=== PATIENT | female | born 1960 | race Caucasian/White ===

== ENCOUNTER → 2024-03-11 13:28 | Outpatient (REF) | payer MEDICARE, SELFPAY | LOC: WDC 13:28 | PROVIDERS: ATTENDING PHYSICIAN Family Medicine; FAMILY PHYSICIAN Family Medicine | DX: R92.2 Inconclusive mammogram (principal) | CPT/HCPCS: 76641 ==

== ENCOUNTER → 2024-04-29 16:57 | Outpatient (REF) | payer MEDICARE, SELFPAY | LOC: RAD 16:57 | PROVIDERS: ATTENDING PHYSICIAN Internal Medicine Gastroenterology; FAMILY PHYSICIAN Family Medicine | DX: K74.60 Unspecified cirrhosis of liver (principal) | CPT/HCPCS: 76700 ==

== ENCOUNTER 2024-09-17 15:40 | Emergency (ER) | payer MEDICARE, SELFPAY ==
[2024-09-17 15:42] VITALS: BP 159/82
--- NOTE | 2024-09-17 15:54 | ED.GENMED ---
History of Present Illness
General
Chief Complaint: Musculo-Skeletal Complaint
Source: patient
Exam Limitations: none
Time Seen by Provider: 09/17/24 15:49
History of Present Illness
History of Present Illness:
See MDM
Past History
Past History
ED Past Medical History: Arrthythmia, CVA and Valvular disease
ED Past Surgical History: Cardiac, and Gynecological
Social History
Tobacco: Non-smoker
Alcohol: None
Drug: None
Living: with family
Family History
Family History: Diabetes
Phy Exam
Physical Exam
Physical Exam:
See MDM
Course
Orders/Labs/Results
Orders:
Orders
09/17/24 15:43
Hand, Right 3 View [CR Hand - Right Min 3 Views] Urgent
Comment:
Reason For Exam: hand injury now with non painful lump top of hand
Vital Signs
Initial and Last Documented VS:
Initial Vital Signs
Temp Pulse Resp BP Pulse Ox
98.1 F 82 16 159/82 98
09/17/24 15:42 09/17/24 15:42 09/17/24 15:42 09/17/24 15:42 09/17/24 15:42
Last Documented Vital Signs
Temp Pulse Resp BP Pulse Ox
98.1 F 82 16 159/82 98
09/17/24 15:42 09/17/24 15:42 09/17/24 15:42 09/17/24 15:42 09/17/24 15:42
MDM/Problems Addressed
Differential Diagnosis Includes:
HPI and MDM Narrative:
64-year-old female presenting with right hand injury. She states she was wrestling a phone out of her hand with her daughter. She states soon afterwards, she noted that there was black and blue of her right hand and she noted a bubble. Patient
denies numbness or tingling or pain with hand movement
On exam, her hand is neurovascularly intact. The x-ray shows no evidence of fracture. The 'bubble' is very mobile and has the appearance of a ganglionic cyst. Discussed expectant management and follow-up with hand. It is non pulsatile
Physical exam
General: Well appearing and non-toxic
HEENT: protecting airway
Neck: appears supple
CV: No evidence of cyanosis
Resp: No accessory muscle use
Abd: Non-distended
Extremities: Bruising to dorsum of right hand without bony tenderness. All fingers neurovascular intact. No evidence of ligamentous injury. Palpable 1 cm cyst to dorsum of right hand below index finger
Neuro: alert
Psych: Normal affect
Skin: Intact
Problems Addressed including Acute and Chronic Conditions affecting care:
1. Ganglion cyst
Acuity: acute
Prognosis: stable
Details: Discussed follow-up with hand.
Differential Diagnosis (but not limited to): Ganglion cyst, fracture, sprain
Testing considered: INR level
Drug therapy (if applicable): OTC meds, please see d/c instruction regarding Rx drugs
Amount and/or Complexity of Data Reviewed
Clinical info obtained from: Patient
External data reviewed: N/A
Labs I independently reviewed (but not limited to): N/A
Radiology: X-ray independently reviewed: No fracture noted on hand x-ray
Pulse Ox: not hypoxic
EKG independently reviewed: N/A
Chief Ii Dispatcher: N/A
Critical Care: N/A
Risk of Complication:
Social Determinants of health: Good social support
Discussed with other providers: N/A
Escalation of Care includes Admit/Obs: After being observed in the Emergency Department, pt stable for discharge.
Occasional wrong word or 'sound a like' substitutions may have occurred due to the inherent limitations of voice recognition software. Read the chart carefully and recognize, using context, where substitutions have occurred.
*Critical Care Note
Total Time (30-74mins, 75-104mins- exclusive of procedures): Not Applicable
ED Attending Note
-
Portions of this chart may have been created with voice recognition software.� Occasional wrong word or��sound alike� substitutions may have occurred due to the inherent limitations of voice recognition software.
Discharge Plan
Departure
Patient Disposition: Home (Routine Discharge)
Date of Disposition: 09/17/24
Time of Disposition: 16:09
Patient with high blood pressure during this ER visit?: Yes
Discharge Problem:
Ganglion cyst
Instructions: Ganglion Cyst (DC), BLOOD PRESSURE
Prescriptions:
No Action
donepezil 10 MG tablet
10 mg PO DAILY
digoxin 0.125 MG tablet
0.125 mg PO DAILY
diltiazem HCl 60 MG tablet
120 mg PO DAILY
warfarin 2.5 mg tablet
5 mg PO THSA
warfarin 2.5 mg tablet
7.5 mg PO SUMOTUWEFR
furosemide 20 mg Tablet
20 mg PO DAILY Qty: 30 0RF
potassium chloride 10 mEq tablet,ER particles/crystals
10 meq PO Q48H Qty: 30 0RF
cephalexin 500 mg capsule
500 mg PO QID 9 Days Qty: 36 0RF
prednisone 10 mg Tablet
See Rx Instructions .ROUTE .COMPLEX Qty: 30 0RF
Rx Instructions:
Take By Mouth:
40 mg daily x3 days, 30 mg daily x3 days,
20 mg daily x3 days, 10 mg daily x3 days.
Referrals:
Aung Childers MD [Active] -
Activity Restrictions/Additional Instructions:
Please return for any worsening symptoms.
You may return at any time if you have further concerns.
Please follow up with your doctor at the first available appointment, preferably this week.
Please follow-up with a hand surgeon.
Thank you for choosing [facility].
Interventions
Interventions:
*Risk Screen - Suicide Last Done: 09/17/24 15:57
*General Assessment Last Done: 09/17/24 15:57
*Neglect/Abuse Screening Last Done: 09/17/24 15:57
ED- Fall Risk Assessment Last Done: 09/17/24 15:57
*ED COVID-19 Vaccine History Last Done: 09/17/24 15:57
ED-Musculoskeletal Assessment Last Done: 09/17/24 15:57
Discharge Date and Time
Print Language: ARMENIAN
--- NOTE | 2024-09-17 16:19 | EDRN ---
Reviewed discharge instructions with patient. Verbalized understanding. Ambulated with steady gait to the lobby.
[2024-09-17 16:20] VITALS: BP 134/70
== END 2024-09-17 16:23 | disposition home or self-care (01) ==
LOC: EMR 15:40
PROVIDERS: EMERGENCY PHYSICIAN Student in an Organized Health Care Education/Training Program; FAMILY PHYSICIAN Family Medicine
DX: M67.40 Ganglion, unspecified site (principal); I38 Endocarditis, valve unspecified; Z83.3 Family history of diabetes mellitus; Z86.73 Personal history of transient ischemic attack (TIA), and cerebral infarction without residual deficits
CPT/HCPCS: 99283; 73130

== ENCOUNTER 2024-10-16 20:02 | Emergency (ER) | payer MEDICARE, SELFPAY ==
[2024-10-16 20:04] VITALS: BP 117/52; BMI 24.6
[2024-10-16 20:07] VITALS: BP 117/52
[2024-10-16 20:22] LABS: % Basophils 0.5 % (0-2); % Eosinophils 1.2 % (0-6); % Immature Granulocytes 0.7 % (0-0.5); % Lymphocytes 11.5 % (20.5-51.1); % Monocytes 9.1 % (1.7-9.3); Absolute Eosinophils 0.1 10^3/uL (0-0.7); Absolute Lymphocytes 0.5 10^3/uL (1.2-3.4); Absolute Monocytes 0.4 10^3/uL (0.1-0.6); Absolute Neutrophils 3.2 10^3/uL (1.4-6.5); Hematocrit 37.7 % (37.0-47.0); Mean Corp Hgb Conc. 31.8 g/dL (33.0-37.0); Mean Corpuscular Hgb 27.6 pg (27.0-31.0); Mean Corpuscular Volume 86.7 fL (81.0-99.0); Mean Platelet Volume 11.6 fL (7.4-10.4); Nucleated Red Blood Cells % 0 %; Platelet Count 156 10^3/uL (130-400); Red Blood Cell Count 4.35 10^6/uL (4.20-5.40); White Blood Cell Count 4.2 10^3/uL (4.8-10.8)
--- NOTE | 2024-10-16 20:31 | ED.GENMED ---
History of Present Illness
General
Chief Complaint: Fainting/Passed Out
Time Seen by Provider: 10/16/24 20:04
History of Present Illness
History of Present Illness:
TIME OF INITIAL ENCOUNTER: 8:20 PM
HPI: The patient had a sensation that she needed to go to the bathroom. She felt nauseated for the preceding few hours prior to arrival. She later found herself laying on the floor. She is not quite sure what happened but ended up having facial
trauma. She is on Coumadin. She had some neck but declined cervical spine collar by EMS. EMS also noted heart rate between 30s to 50s. 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
EXAM:
GENERAL: Well appearing in no distress
HEENT: Tenderness and edema noted diffusely over the nose
CARDIOVASCULAR: No murmurs, click noted in the left upper sternal border, bradycardic heart rate, slightly irregular rhythm, No chest wall tenderness
PULMONARY: No respiratory distress, breath sounds are clear and equal
ABDOMEN: Soft with no peritoneal signs, no tenderness
NEUROLOGIC: Excellent strength all extremities, no coordination deficits
PSYCHIATRIC: Appropriate mental status, normal insight and judgement
EXTREMITIES: Nontender, no edema, moves all extremities equally
SKIN: No rash, no lesions
NUMBER AND COMPLEXITY OF PROBLEMS ADDRESSED AT THE ENCOUNTER
� Chronic conditions affecting care: She will fibrillation, has had mitral and aortic valve surgeries
� Acute Exacerbation and/or Progression of Chronic Illness: This is an acute problem
� Differential Diagnosis includes: Symptomatic bradycardia, supratherapeutic INR, intracranial hemorrhage, medication induced bradycardia, sick sinus syndrome
AMOUNT AND/OR COMPLEXITY OF DATA TO BE REVIEWED AND ANALYZED
� I performed an independent evaluation of and my interpretation is:
EKG: A-fib, ventricular rate of 53, leftward axis deviation
CT: CT imaging of the head, C-spine, and facial bones personally viewed; nasal bone fractures, no evidence of cervical spine fracture, no evidence of intracranial hemorrhage
X-rays:
Laboratory Studies: White count 4.2, hemoglobin 12.0, INR 3.9, chemistries relatively unremarkable however the AST and ALT are elevated which is new in comparison to prior, troponin less than 0.012, digoxin level undetected
Other:
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
symptoms at that time of ascites
� Clinical information was obtained by an independent historian: I spoke to the daughter at bedside
� Prescriptions/Medications Considered but not given:
� Further testing considered but not performed:
RISK OF COMPLICATIONS AND/OR MORBIDITY OR MORTALITY OF PATIENT MANAGEMENT
� Social determinants of health affecting care: Lives at home
� Discussion with other providers:
� Escalation of care including admission/observation vs risk of discharge considered: The patient initially did have heart rates that were in the 40s to 50s however throughout her stay in the emergency department was primarily in
the 60s to even 70. Transaminases are elevated of uncertain significance. We talked about having a vagal event related to the nausea that she had earlier. Currently she has no further nausea. She reportedly was given Zofran prior to arrival in
the emergency department by EMS.
ANY OTHER UPDATES:
10 PM: On reassessment, the patient has no abdominal tenderness despite transaminase and total bili elevation�ultrasound imaging obtained. I informed patient of the patient's nasal bones fractures. I reviewed the EMS rhythm strip which showed a
A-fib rhythm with ventricular rate of 45.
11 PM: The patient resting comfortably, able to walk without difficulty. Heart rate remains in the 60s with no further symptoms. Ultrasound imaging unchanged from prior.
Past History
Past History
ED Past Medical History: Arrthythmia, CVA and Valvular disease
ED Past Surgical History: Cardiac, and Gynecological
Social History
Tobacco: Non-smoker
Alcohol: None
Drug: None
Living: with family
Family History
Family History: Diabetes
Phy Exam
Physical Exam
Physical Exam:
See HPI
Course
Orders/Labs/Results
Orders:
Orders
10/16/24 20:03
CT Head W/o Iv Contrast Urgent
Comment:
Reason For Exam: fall hit head
10/16/24 20:14
Electrocardiogram (*1) Urgent
Reason for Study: Bradycardia / Tachycardia
EKG- Treatment ONCE
10/16/24 20:15
PT/INR [Prothrombin Time] Urgent
10/16/24 20:16
CMP [Comprehensive Metabolic Panel] Urgent
Complete Blood Count/With Diff Urgent
Digoxin Urgent
10/16/24 20:22
CT Cervical Spine W/o Iv Contr Urgent
Comment:
Reason For Exam: fall neck tenderness
10/16/24 20:30
CT Facial Bones W/o Iv Contras Urgent
Comment:
Reason For Exam: facial trauma pain
10/16/24 20:31
Add On- LAB Urgent
Tests Added?: digoxin
10/16/24 20:38
Troponin I Urgent
10/16/24 21:51
US Abdomen Complete/Upper Urgent
Comment:
Reason For Exam: abnormal lfts
Abnormal Lab Results
10/16/24 10/16/24
20:15 20:16
WBC 4.2 L 10^3/uL
(4.8-10.8)
MCHC 31.8 L g/dL
(33.0-37.0)
MPV 11.6 H fL
(7.4-10.4)
Absolute Lymphs (auto) 0.5 L 10^3/uL
(1.2-3.4)
Immature Gran % 0.7 H %
(0-0.5)
Neutrophils % 77.0 H %
(42.2-75.2)
Lymphocytes % 11.5 L %
(20.5-51.1)
PT 38.6 H Sec
(11.4-14.6)
BUN 19 H mg/dl
(7-17)
Glucose 167 H mg/dl
(70-99)
Total Bilirubin 1.9 H mg/dl
(0.2-1.3)
AST 293 H U/L
(14-36)
ALT 199 H U/L
(0-35)
Alkaline Phosphatase 174 H U/L
(38-126)
Digoxin < 0.4 L ng/ml
(0.8-2.0)
10/16/24 20:16
10/16/24 20:16
Vital Signs
Pulse: 64
Initial and Last Documented VS:
Initial Vital Signs
Temp Pulse Resp BP Pulse Ox
36.4 C 46 16 117/52 98
10/16/24 20:04 10/16/24 20:04 10/16/24 20:04 10/16/24 20:04 10/16/24 20:04
Last Documented Vital Signs
Temp Pulse Resp BP Pulse Ox
36.4 C 64 27 128/59 94
10/16/24 20:04 10/16/24 22:07 10/16/24 22:00 10/16/24 22:00 10/16/24 22:00
*Critical Care Note
Total Time (30-74mins, 75-104mins- exclusive of procedures): Not Applicable
ED Attending Note
-
Portions of this chart may have been created with voice recognition software.� Occasional wrong word or��sound alike� substitutions may have occurred due to the inherent limitations of voice recognition software.
Discharge Plan
Departure
Patient Disposition: Home (Routine Discharge)
Date of Disposition: 12/05/24
Time of Disposition: 22:52
Patient with high blood pressure during this ER visit?: Yes
Discharge Problem:
Syncope and collapse
Instructions: Syncope (Fainting) (DC)
Prescriptions:
No Action
donepezil 10 MG tablet
10 mg PO DAILY
digoxin 0.125 MG tablet
0.125 mg PO DAILY
diltiazem HCl 60 MG tablet
120 mg PO DAILY
warfarin 2.5 mg tablet
5 mg PO THSA
warfarin 2.5 mg tablet
7.5 mg PO SUMOTUWEFR
furosemide 20 mg Tablet
20 mg PO DAILY Qty: 30 0RF
potassium chloride 10 mEq tablet,ER particles/crystals
10 meq PO Q48H Qty: 30 0RF
cephalexin 500 mg capsule
500 mg PO QID 9 Days Qty: 36 0RF
prednisone 10 mg Tablet
See Rx Instructions .ROUTE .COMPLEX Qty: 30 0RF
Rx Instructions:
Take By Mouth:
40 mg daily x3 days, 30 mg daily x3 days,
20 mg daily x3 days, 10 mg daily x3 days.
Referrals:
Atif Robins DO [Family Provider] -
Lela Naylor MD [Active] - Follow up in 1 week
Activity Restrictions/Additional Instructions:
The cause of your symptoms is unclear. Your EKG shows atrial fibrillation. Throughout your stay in the emergency department, your heart rate spontaneously improved and was primarily in the 60s (normal). Blood work including cardiac blood work is
unremarkable however the liver numbers were abnormal. Your hemoglobin is much improved compared to prior. Therefore an ultrasound was obtained but this shows no change in comparison to the ultrasound from April of this year (gallstones again
noted). I recommend that you follow-up with your primary care doctor for repeat liver function tests as an outpatient. INR tonight is 3.9. Regarding the broken nose, you could follow-up with Dr. Naylor.
Interventions
Interventions:
*Risk Screen - Suicide Last Done: 10/16/24 20:04
*General Assessment Last Done: 10/16/24 20:04
*Neglect/Abuse Screening Last Done: 10/16/24 20:04
ED- Fall Risk Assessment Last Done: 10/16/24 20:30
*ED COVID-19 Vaccine History Last Done: 10/16/24 20:04
ED- Cardiac Assessment Last Done: 10/16/24 20:30
ED- Neurological Assessment Last Done: 10/16/24 20:30
Discharge Date and Time
Print Language: CHILEAN
[2024-10-16 20:33] LABS: INR 3.92; PT 38.6 Sec (11.4-14.6)
[2024-10-16 20:46] LABS: ALT (SGPT) 199 U/L (0-35); AST (SGOT) 293 U/L (14-36); Albumin 4.8 g/dl (3.5-5.0); Alkaline Phosphatase 174 U/L (38-126); Blood Urea Nitrogen 19 mg/dl (7-17); Calcium 9.1 mg/dl (8.4-10.2); Carbon Dioxide 27 mmol/L (22-30); Chloride 102 mmol/L (98-107); Estimated Creatinine Clearance 68 ml/min; Glucose 167 mg/dl (70-99); Potassium 4.5 mmol/L (3.5-5.1); Sodium 141 mmol/L (135-145); Total Bilirubin 1.9 mg/dl (0.2-1.3); Total Protein 8.1 g/dl (6.3-8.2); eGFR > 60.00
[2024-10-16 20:48] LABS: Digoxin < 0.4 ng/ml (0.8-2.0)
[2024-10-16 21:08] LABS: Troponin I < 0.012 ng/ml
[2024-10-16 22:00] VITALS: BP 128/59
== END 2024-10-16 23:47 | disposition home or self-care (01) ==
LOC: EMR 20:02
PROVIDERS: Emergency Medicine; EMERGENCY PHYSICIAN Emergency Medicine; FAMILY PHYSICIAN Family Medicine
DX: R55 Syncope and collapse (principal); S02.2XXA Fracture of nasal bones, initial encounter for closed fracture; W19.XXXA Unspecified fall, initial encounter; R74.01 Elevation of levels of liver transaminase levels; I48.91 Unspecified atrial fibrillation; Z95.2 Presence of prosthetic heart valve; Z79.01 Long term (current) use of anticoagulants; Z86.73 Personal history of transient ischemic attack (TIA), and cerebral infarction without residual deficits
CPT/HCPCS: 99284; 70450; 70486; 72125; 76700; 80053; 80162; 84484; 85025; 85610; 93005

== ENCOUNTER 2025-05-19 19:58 | Emergency (ER) | payer MEDICARE, SELFPAY ==
[2025-05-19 19:58] VITALS: BMI 26.3
[2025-05-19 20:03] VITALS: BP 168/79
[2025-05-19 20:34] LABS: Urine Character Clear (Clear)
[2025-05-19 20:34] LABS: Hematocrit 39.6 % (37.0-47.0); Hemoglobin 13.3 g/dL (12.0-16.0); Mean Corp Hgb Conc. 33.6 g/dL (33.0-37.0); Mean Corpuscular Volume 83.9 fL (81.0-99.0); Nucleated Red Blood Cells % 0 %; Platelet Count 156 10^3/uL (130-400); Red Cell Dist. Width 14.2 % (11.5-14.5)
[2025-05-19 20:40] LABS: Urine Squamous Cell 16-20 /LPF (Few)
[2025-05-19 20:42] LABS: Urine White Cell 0-2 /HPF (0-5)
[2025-05-19 20:56] LABS: ALT (SGPT) 21 U/L (0-35); AST (SGOT) 28 U/L (14-36); Albumin 5.1 g/dl (3.5-5.0); Alkaline Phosphatase 97 U/L (38-126); Blood Urea Nitrogen 17 mg/dl (7-17); Calcium 9.5 mg/dl (8.4-10.2); Carbon Dioxide 29 mmol/L (22-30); Chloride 105 mmol/L (98-107); Glucose 134 mg/dl (70-99); Lipase 78 U/L (23-300); Potassium 5.0 mmol/L (3.5-5.1); Sodium 139 mmol/L (135-145); Total Protein 8.8 g/dl (6.3-8.2); eGFR > 60.00
--- NOTE | 2025-05-19 23:37 | ED.GENMED ---
History of Present Illness
General
Chief Complaint: Abdominal Pain
Source: patient
Exam Limitations: none
Time Seen by Provider: 05/19/25 23:25
Nursing documentation reviewed up to this point in time: agreed with
History of Present Illness
History of Present Illness:
Six 4-year-old female presents emergency department due to nausea and vomiting at 615. She had normal bowel movements today. She vomited 4 times. She feels better at this time. She is taking cream to put on a rash/wart. She brought this on
[employer]. She is concerned this is causing her symptoms. She has been using it for 8 days.
Past History
Past History
ED Past Medical History: Arrthythmia, CVA and Valvular disease
ED Past Surgical History: Cardiac, and Gynecological
Social History
Tobacco: Non-smoker
Alcohol: None
Drug: None
Living: with family
Family History
Family History: Diabetes
Review of Systems
Review of Systems
Allergies reviewed?: Yes
All Other Systems: Not applicable
Constitutional: Reports no symptoms
EENT: Reports no symptoms
Respiratory: Reports no symptoms
Cardiac: Reports no symptoms
ABD/GI: Reports vomiting
: Reports no symptoms
Musculoskeletal: Reports no symptoms
Skin: Reports no symptoms
Neurological: Reports no symptoms
Endocrine: Reports no symptoms
Hematologic/Lymphatic: Reports no symptoms
Psychiatric: Reports no symptoms
Phy Exam
Physical Exam
Physical Exam:
Physical Exam
General: no apparent distress, not acutely ill
Neck: supple. no meningeal signs. normal posterior pharynx
Heart: s1/s2 regular rate and rhythm, no murmur. equal radial
pulses.
HEENT: Pupils equal round reactive to light, EOMI
Lungs: no acute respiratory distress. clear bilaterally
Abdomen: normal bowel sounds. not tender. no CVAT
Neuro: alert and oriented. no focal neurological deficits cranial nerves II through XII intact
Skin: no rash
Psychiatric: well kept. interactive and cooperative
Extremities: no edema. no calf tenderness. negative homans. good distal pulses
Course
Orders/Labs/Results
Orders:
Orders
05/19/25 20:11
IV Insert/Care/Rem.- Treatment PRN
Straight cath- Treatment ONCE
05/19/25 20:16
Complete Blood Count/With Diff Urgent
Comprehensive Metabolic Panel Urgent
Lipase Urgent
05/19/25 20:24
Urinalysis Reflex To Culture Urgent
Date Specimen was Collected: 05/19/25
Time Specimen was Collected: 20:11
Urine Microscopic Reflex Cult Urgent
Urine Culture Urgent
DEEDEE Source: U
Specimen Description:
Date Specimen was Collected: 05/19/25
Time Specimen was Collected: 20:11
05/19/25 23:36
Prothrombin Time Urgent
Abnormal Lab Results
05/19/25 05/19/25
20:16 20:24
MPV 11.4 H fL
(7.4-10.4)
Abs Immat Gran (auto) 0.1 H 10^3/uL
(0-0.05)
Absolute Lymphs (auto) 0.7 L 10^3/uL
(1.2-3.4)
Immature Gran % 1.1 H %
(0-0.5)
Neutrophils % 82.4 H %
(42.2-75.2)
Lymphocytes % 10.2 L %
(20.5-51.1)
Glucose 134 H mg/dl
(70-99)
Total Protein 8.8 H g/dl
(6.3-8.2)
Albumin 5.1 H g/dl
(3.5-5.0)
Urine Ketones 2+ A
(Negative)
Ur Occult Blood Reflex 2+ A
(Negative)
Urine RBC 3-6 A /HPF
(0-2)
Urine Bacteria (Reflex) Many A
(Negative)
Urine Albumin (Reflex) 3+ A
(Neg - Trace)
05/19/25 20:16
05/19/25 20:16
Vital Signs
Initial and Last Documented VS:
Initial Vital Signs
Temp Pulse Resp BP Pulse Ox
97.5 F 73 20 168/79 97
05/19/25 20:03 05/19/25 20:03 05/19/25 20:03 05/19/25 20:03 05/19/25 20:03
Last Documented Vital Signs
Temp Pulse Resp BP Pulse Ox
97.5 F 68 20 168/79 96
05/19/25 20:03 05/19/25 23:33 05/19/25 23:33 05/19/25 20:03 05/19/25 23:41
MDM/Problems Addressed
Differential Diagnosis Includes:
Bowel obstruction, UTI
MDM/Problems Addressed:
64-year-old female with nausea and vomiting. Resolved. Unclear etiology, doubt related to topical ivermectin.
*Pulse Oximetry
SaO2: 96
Oxygen Mode of Delivery: Room air
Patient hypoxic: no
*Critical Care Note
Total Time (30-74mins, 75-104mins- exclusive of procedures): Not Applicable
Data Reviewed
Further Testing Considered But Not Given:
CT abdomen pelvis not indicated
Patient Management
Social determinants of health affecting care: Living situation and Strong social support
Escalation/DeEscalation of care consider admission/obs:
Admit not indicated
ED Attending Note
-
Portions of this chart may have been created with voice recognition software.� Occasional wrong word or��sound alike� substitutions may have occurred due to the inherent limitations of voice recognition software.
Discharge Plan
Departure
Patient Disposition: Home (Routine Discharge)
Date of Disposition: 05/20/25
Time of Disposition: 00:29
Patient with high blood pressure during this ER visit?: Yes
Condition: Good
Discharge Problem:
Nausea and vomiting
Instructions: Nausea and Vomiting, Adult (DC), BLOOD PRESSURE
Prescriptions:
No Action
donepezil 10 MG tablet
10 mg PO DAILY
digoxin 0.125 MG tablet
0.125 mg PO DAILY
diltiazem HCl 60 MG tablet
120 mg PO DAILY
warfarin 2.5 mg tablet
5 mg PO THSA
warfarin 2.5 mg tablet
7.5 mg PO SUMOTUWEFR
furosemide 20 mg Tablet
20 mg PO DAILY Qty: 30 0RF
potassium chloride 10 mEq tablet,ER particles/crystals
10 meq PO Q48H Qty: 30 0RF
cephalexin 500 mg capsule
500 mg PO QID 9 Days Qty: 36 0RF
prednisone 10 mg Tablet
See Rx Instructions .ROUTE .COMPLEX Qty: 30 0RF
Rx Instructions:
Take By Mouth:
40 mg daily x3 days, 30 mg daily x3 days,
20 mg daily x3 days, 10 mg daily x3 days.
Referrals:
Atif Robins DO [Family Provider, Family Practice] - Call in 1-3 days for appt
Interventions
Interventions:
*Risk Screen - Suicide Last Done: 05/19/25 20:03
*General Assessment Last Done: 05/19/25 20:03
*Neglect/Abuse Screening Last Done: 05/19/25 20:03
*ED- Fall Risk Assessment Last Done: 05/19/25 20:03
*ED COVID-19 Vaccine History Last Done: 05/19/25 20:03
Discharge Date and Time
Print Language: EQUATORIAL GUINEAN
== END 2025-05-20 00:57 | disposition home or self-care (01) ==
LOC: EMR 19:58
PROVIDERS: EMERGENCY PHYSICIAN Emergency Medicine; FAMILY PHYSICIAN Family Medicine
DX: R11.2 Nausea with vomiting, unspecified (principal); I38 Endocarditis, valve unspecified; Z83.3 Family history of diabetes mellitus; Z86.73 Personal history of transient ischemic attack (TIA), and cerebral infarction without residual deficits
CPT/HCPCS: 99283; 80053; 81003; 81015; 83690; 85025; 87086

== ENCOUNTER → 2025-08-21 16:18 | Outpatient (REF) | payer MEDICARE, SELFPAY ==
[2025-08-21 16:45] LABS: INR 1.87; PT 21.7 Sec (11.4-14.6)
== END ==
LOC: REG 16:18
PROVIDERS: ATTENDING PHYSICIAN Student in an Organized Health Care Education/Training Program; FAMILY PHYSICIAN Family Medicine
DX: I48.0 Paroxysmal atrial fibrillation (principal); Z95.2 Presence of prosthetic heart valve
CPT/HCPCS: 36415; 85610